=== PATIENT | female | born 1950 | race Hispanic/Latino ===

== ENCOUNTER 2017-11-03 13:00 | Outpatient (RCR) | payer MEDICARE | END 2017-11-13 | LOC: PT 13:00 | PROVIDERS: ATTEND Internal Medicine | DX: M54.5 Low back pain (principal); M12.88 Other specific arthropathies, not elsewhere classified, other specified site; M62.81 Muscle weakness (generalized) | CPT/HCPCS: 97010; 97110 ×4; G8981; G8982; G8988; G8989 ==

== ENCOUNTER → 2019-01-05 | Outpatient (CLI) | payer MEDICARE, OTHER ==
--- NOTE | 2019-01-05 11:48 | Diagnostic Imaging Report ---
EXAMINATION: PA and lateral views of the chest. COMPARISON: None CLINICAL HISTORY: Left ventricular enlargement, breast cancer screening DISCUSSION: Lines/tubes: None. Lungs: The lungs are well inflated and clear. No pneumonia or pulmonary edema. Pleura: No pleural effusion or pneumothorax. Heart and mediastinum: Prominent heart size. Bones and soft tissues: No acute bony abnormalities. IMPRESSION: No acute cardiopulmonary abnormalities. Signed by: Dr. Isaias Yeh M.D. on 01/05/2019 11:45 AM
--- NOTE | 2019-01-05 11:51 | Diagnostic Imaging Report ---
EXAM: BONE MINERAL DENSITY HISTORY: Bone mineralization evaluation COMPARISON: None DISCUSSION: Evaluation of the left hip and lumbar spine was performed utilizing DEXA Hologic bone densitometer. The study is technically adequate. Left hip femoral neck bone mineral density: 0.57 g/cm2, T-score is -2.6, Z-score is -0.9. Left hip total bone mineral density: 0.80 g/cm2, T-score is -1.2, Z-score is 0.3. Lumbar spine total bone mineral density: 0.94 gm/cm2, T-score is -1.0, Z-score is 1.2. Impression: Bone mineralization by WHO Classification is osteoporosis, the fracture risk is increased. Signed by: Dr. Isaias Yeh M.D. on 01/05/2019 11:48 AM
== END ==
LOC: MAMMO 10:04
PROVIDERS: ATTEND Internal Medicine
DX: Z12.31 Encounter for screening mammogram for malignant neoplasm of breast (principal); M15.0 Primary generalized (osteo)arthritis; M16.12 Unilateral primary osteoarthritis, left hip; M47.896 Other spondylosis, lumbar region; I51.7 Cardiomegaly
CPT/HCPCS: 71046; 77067; 77080

== ENCOUNTER → 2019-05-28 | Outpatient (CLI) | payer MEDICARE, OTHER ==
--- NOTE | 2019-05-28 13:00 | Diagnostic Imaging Report ---
Exam: Left Knee Series. History: Knee pain Comparison: None Findings: No acute fracture or dislocation. Alignment is anatomic. Mild medial compartment degenerative changes with osteophyte formation and mild joint space narrowing. No joint effusion. Impression: No acute osseous injury. Mild medial compartment predominant degenerative changes. Signed by: Kirti Rico MD on 05/28/2019 12:56 PM
== END ==
LOC: RAD 12:04
PROVIDERS: ATTEND Internal Medicine
DX: M25.562 Pain in left knee (principal)

== ENCOUNTER → 2019-07-02 | Outpatient (CLI) | payer MEDICARE, OTHER ==
--- NOTE | 2019-07-02 10:22 | Diagnostic Imaging Report ---
Left knee MRI without contrast. History: Knee pain. Decreased range of motion. Peripheral tear of medial meniscus. Comparison: Radiographs 05/28/2019. Technique: Multiplanar multi-sequence MRI of the knee without contrast. Findings: Medial compartment: Complex tear involving the posterior horn and body segments of the medial meniscus. Meniscal tissue is displaced to the periphery. Advanced full-thickness articular cartilage loss in the medial compartment with peripheral osteophytosis and underlying bone marrow edema. The medial collateral complex is intact. Lateral compartment: No meniscal tear or cartilage abnormality. The LCL complex is normal. Intercondylar notch: The ACL and PCL are intact. Patellofemoral compartment: Articular cartilage fraying and deep fissuring in the patellofemoral compartment with mild underlying bone marrow edema. Extensor mechanism: The quadriceps and patellar tendons are normal. Other findings: There is a joint effusion and synovitis. There is no acute fracture, subluxation or avascular necrosis. Lobulated septated Blanchard's cyst. 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 Articular cartilage fraying and deep fissuring in the patellofemoral compartment with mild underlying bone marrow edema. Joint effusion, synovitis and lobulated septated Blanchard's cyst. Signed by: Dr. Sincere Evans M.D. on 07/02/2019 10:19 AM
== END ==
LOC: MRI 08:42
PROVIDERS: ATTEND Specialist
DX: S83.222A Peripheral tear of medial meniscus, current injury, left knee, initial encounter (principal)

== ENCOUNTER → 2020-01-22 | Outpatient (CLI) | payer MEDICARE, OTHER ==
--- NOTE | 2020-01-22 11:19 | Diagnostic Imaging Report ---
Exam: Bone mineral density study. History: Osteoporosis screening Comparison: 01/05/2019 Discussion: Evaluation of the left hip and lumbar spine was performed utilizing DEXA Hologic bone densitometer. The study is technically adequate. The patient's fracture risk is compared to an age-matched control. The patient denies prior surgery/fracture of the spine, hips or forearm. Left hip femoral neck bone mineral density: 0.589 g/cm2, T-score is -2.4, Z-score is -0.6. Left hip total bone mineral density: 0.838 g/cm2, T-score is -0.9, Z-score is 0.6. Left hip bone mineral density is increased 4.7% from the prior examination from 01/05/2019. Lumbar spine total bone mineral density: 1.025 gm/cm2, T-score is -0.2, Z-score is 2.0. Lumbar mineral density is increased 8.9% from the prior examination from 01/05/2019. Impression: 1. Bone mineralization by WHO Classification of the left hip is osteopenia, the fracture risk is moderate. 2. Bone mineralization by WHO Classification of the lumbar spine is normal, the fracture risk is not increased. Recommendations: Medical evaluation for secondary causes of low bone mineral density may be appropriate. Correlate clinically for the necessity and timing of the next bone mineral density study. Signed by: Dr. Scooter Simpson MD on 01/22/2020 11:17 AM
--- NOTE | 2020-01-22 11:21 | Diagnostic Imaging Report ---
EXAM: CHEST 2 VIEWS DATE: 01/22/2020 10:36 AM INDICATION: Hypertension heart disease COMPARISON: 01/05/2019 FINDINGS: The trachea is midline. The lungs are symmetrically expanded without evidence for large focal consolidation, pneumothorax, or significant pleural effusion. The cardiomediastinal stable in appearance. No acute osseous abnormality is identified. The surrounding soft tissues are unremarkable. IMPRESSION: No acute cardiopulmonary process identified. Signed by: Dr. Scooter Simpson MD on 01/22/2020 11:18 AM
== END ==
LOC: DX 10:20
PROVIDERS: ATTEND Internal Medicine
DX: Z13.820 Encounter for screening for osteoporosis (principal); I11.9 Hypertensive heart disease without heart failure
CPT/HCPCS: 71046; 77080

== ENCOUNTER → 2020-04-24 | Outpatient (CLI) | payer MEDICARE, OTHER ==
--- NOTE | 2020-04-24 11:26 | Diagnostic Imaging Report ---
EXAMINATION: CHEST 2 VIEWS INDICATION: COUGH COMPARISON: 01/22/2020. FINDINGS: TUBES and LINES: None. LUNGS: Lungs are well inflated. Mild bilateral perihilar, peribronchial thickening. There is no evidence of pneumonia or pulmonary edema. PLEURA: No pleural effusion or pneumothorax. HEART AND MEDIASTINUM: The cardiomediastinal silhouette is unremarkable. BONES AND SOFT TISSUES: No acute osseous lesion. Mild spondylosis of the thoracic spine. UPPER ABDOMEN: No free air under the diaphragm. IMPRESSION: Mild bilateral perihilar, peribronchial thickening may reflect reactive airway disease. No consolidation. Signed by: Dr. Deisy Jain M.D. on 04/24/2020 11:23 AM
== END ==
LOC: RAD 09:38
PROVIDERS: ATTEND Internal Medicine
DX: R05 Cough (principal)
CPT/HCPCS: 71046

== ENCOUNTER → 2021-11-05 | Outpatient (CLI) | payer MEDICARE, OTHER | LOC: MAMMO 10:58 | PROVIDERS: ATTEND Family Medicine | DX: Z12.31 Encounter for screening mammogram for malignant neoplasm of breast (principal); M85.88 Other specified disorders of bone density and structure, other site | CPT/HCPCS: 77067; 77080 ==

== ENCOUNTER → 2024-10-22 | Outpatient (REF) | payer MEDICARE, OTHER | LOC: MAMMO 10:40 | PROVIDERS: ATTEND Family Medicine | DX: Z12.31 Encounter for screening mammogram for malignant neoplasm of breast (principal); M85.88 Other specified disorders of bone density and structure, other site | CPT/HCPCS: 77067; 77080 ==

== ENCOUNTER 2025-06-27 21:31 | Emergency (ER) | payer MEDICARE, OTHER ==
[~2025-06-27] VITALS: Ht 147.3 cm; Wt 111.1 kg
[2025-06-27 21:35] VITALS: PULSE 96; RESP 21; TEMP 98.7
[2025-06-27] MEDS: ACETAMINOPHEN 325 MG TAB PO ONE (22:08)
[2025-06-27 22:39] VITALS: BP 151/91; PULSE 78; RESP 19; TEMP 98.4; O2SAT 98
== END 2025-06-27 22:40 | disposition home or self-care (01) ==
LOC: FSED 21:37
DX: M25.532 Pain in left wrist (principal); S52.592A Other fractures of lower end of left radius, initial encounter for closed fracture; W07.XXXA Fall from chair, initial encounter; Y92.89 Other specified places as the place of occurrence of the external cause
CPT/HCPCS: 99284